=== PATIENT | female | born 1965 | race Caucasian/White ===

== ENCOUNTER 2020-05-21 14:32 | Outpatient (CLI) | payer BC, SELFPAY ==
--- NOTE | ~2020-05-21 | MM_ITS ---
EXAMINATION: MM screening [place] BI w elizabeth HISTORY: Screening mammogram TECHNIQUE: Craniocaudal and mediolateral oblique 3-D tomosynthesis images were obtained and synthetic 2-D images were generated. CAD analysis was submitted and interpreted. COMPARISON: 04/11/2019, 12/20/2016 bilateral digital screening mammogram examinations BREAST PARENCHYMAL COMPOSITION: The breasts are heterogeneously dense, which may obscure small masses . FINDINGS: There is no evidence of suspicious mass, calcification, or architectural distortion to sugg est malignancy in either breast. There has been no suspicious interval change. IMPRESSION: 1. No mammographic evidence of malignancy. 2. Recommend routine screening mammography in one year. BI-RADS Category 1: Negative Reviewed, dictated and finalized at location A.
== END 2020-05-21 14:33 | disposition home or self-care (01) ==
LOC: ANHIMG 14:34
PROVIDERS: PCP Emergency Medicine; Visit Provider Obstetrics & Gynecology
DX: Z12.31 Encounter for screening mammogram for malignant neoplasm of breast (principal)
CPT/HCPCS: 77063; 77067

== ENCOUNTER → 2021-12-30 14:46 | Outpatient (CLI) | payer BC, SELFPAY ==
--- NOTE | ~2021-12-30 | CT_ITS ---
EXAMINATION: CT sinus wo con DATE: 12/30/2021 15:09 INDICATION: Chronic sinusitis TECHNIQUE: Computed tomography (CT) of the paranasal sinuses was performed without contrast. Iterativ e reconstruction technique was employed. Exam dose: 283.55 mGy-cm total exam DLP. COMPARISON: None FINDINGS: There is prominent leftward deviation of the nasal septum. There is moderate prominence of the nasal turbinates intralamellar cell of the middle nasal turbinates. The ostiomeatal units are patent. There is minimal mucoperiosteal thickening along the lower aspect of the maxillary sinuses. The paran marcello sinuses otherwise are normally developed and aerated. The mastoid air cells are well aerated. IMPRESSION: Prominent leftward deviation of nasal septum Intralamellar cell of middle nasal turbinates Minimal mucoperiosteal thickening of the lower aspect of the maxillary sinuses Reviewed, dictated and finalized at Location A. Reviewed, dictated and finalized at location A.
== END ==
PROVIDERS: Visit Provider Emergency Medicine
DX: J32.9 Chronic sinusitis, unspecified (principal); J34.2 Deviated nasal septum
CPT/HCPCS: 70486

== ENCOUNTER → 2022-02-10 15:18 | Outpatient (CLI) | payer BC, SELFPAY ==
--- NOTE | ~2022-02-10 | XR_ITS ---
XR knee LT 3V DATE: 02/10/2022 15:29 INDICATION: Left knee pain TECHNIQUE: Bensley and standing AP and lateral views COMPARISON: None FINDINGS: There is evidence of suprapatellar knee joint effusion. No fracture or dislocation, periosteal reaction or bone destruction. No radiopaque intra-articular lo ose body or chondrocalcinosis. Joint spaces are preserved. IMPRESSION: Suprapatellar knee joint effusion Reviewed, dictated and finalized at location B.
== END ==
PROVIDERS: PCP Emergency Medicine; Visit Provider Emergency Medicine
DX: M25.462 Effusion, left knee (principal)
CPT/HCPCS: 73562

== ENCOUNTER → 2022-02-27 14:43 | Outpatient (CLI) | payer BC, SELFPAY ==
--- NOTE | ~2022-02-27 | MR_ITS ---
EXAMINATION: MR knee LT wo con DATE: 02/27/2022 15:15 INDICATION: Left knee bursitis presenting with 6 weeks of generalized left knee pain. TECHNIQUE: Magnetic resonance imaging (MRI) of the left knee was performed without intravenous contra st. Sequences included coronal PD-weighted FSE, coronal PD-weighted FS FSE, sagittal T2-weighted FSE , sagittal PD-weighted FS FSE and axial PD weighted fat saturated FSE. COMPARISON: None. FINDINGS: Medial compartment: Medial meniscus is normal. Partial-thickness chondral ulceration with smooth chondral surface and wit hout degenerative subchondral changes at the central aspect of the medial tibial plateau. Additional partial thickness cartilage loss with mild chondral surface irregularity at the lateral rim of the ce ntral weightbearing medial femoral condyle. Lateral compartment: Lateral meniscus is normal. Articular cartilage is normal. Patellofemoral compartment: Deep chondral fissuring along the caudal aspect of the lateral patellar facet. Trochlear cartilage is normal. Ligaments and tendons: Anterior and posterior cruciate ligaments are normal. The medial collateral ligament and fibular bandar ateral ligament complex are normal. The extensor mechanism is normal. The visualized medial and later al hamstring tendons as well as the iliotibial band are normal. Fluid: Small amount of joint fluid in the suprapatellar pouch which is within normal limits. No loose osteoc hondral bodies identified. Mild prepatellar edema without discrete bursal fluid collection. Osseous/other: Bone alignment is normal. No fracture or abnormal marrow replacing process. Small amount of edema at the deep suprapatellar fat pad. IMPRESSION: 1. Mild osteoarthritis with small regions of moderate grade chondromalacia at the medial and patellof emoral compartments. 2. Small region of edema at the deep suprapatellar fat pad which can be seen with fat pad impingement syndrome. Reviewed, dictated and finalized at location B. IMPRESSION: 1. Mild osteoarthritis with small regions of moderate grade chondromalacia at t he medial and patellofemoral compartments. 2. Small region of edema at the deep suprapatellar fat pad which can be seen wi th fat pad impingement syndrome.
== END ==
PROVIDERS: PCP Emergency Medicine; Visit Provider Emergency Medicine
DX: M17.12 Unilateral primary osteoarthritis, left knee (principal); M70.52 Other bursitis of knee, left knee; M79.89 Other specified soft tissue disorders; M94.262 Chondromalacia, left knee
CPT/HCPCS: 73721

== ENCOUNTER 2022-03-19 09:23 | Outpatient (CLI) | payer BC, SELFPAY ==
--- NOTE | ~2022-03-19 | MM_ITS ---
EXAMINATION: MM screening [place] BI w elizabeth HISTORY: Screening TECHNIQUE: Craniocaudal and mediolateral oblique 3-D tomosynthesis images were obtained and synthetic 2-D images were generated. CAD analysis was submitted and interpreted. COMPARISON: Comparison to multiple prior studies sequentially, with oldest reviewed study dated 06/21. BREAST PARENCHYMAL COMPOSITION: The breasts are heterogenously dense, which may obscure small masses FINDINGS: There is no evidence of suspicious mass, calcification, or architectural distortion to sugg est malignancy in either breast. There has been no suspicious interval change. IMPRESSION: 1. No mammographic evidence of malignancy. 2. Recommend routine screening mammography in one year. BI-RADS Category 1: Negative Reviewed, dictated and finalized at location A.
== END 2022-03-19 09:24 | disposition home or self-care (01) ==
LOC: ANHIMG 09:26
PROVIDERS: PCP Emergency Medicine; Visit Provider Emergency Medicine
DX: Z12.31 Encounter for screening mammogram for malignant neoplasm of breast (principal)
CPT/HCPCS: 77063; 77067

== ENCOUNTER 2022-05-12 00:19 | Day surgery (SDC) | payer BC, SELFPAY ==
[2022-04-22 14:12] VITALS: BMI 18.7
[2022-05-12 08:35] VITALS: BP 127/73; PULSE 64; RESP 16; TEMP 36.5; O2SAT 100
[2022-05-12] MEDS: LACTATED RINGERS 1,000 ML 150 ML IV CONT (08:38)
--- NOTE | 2022-05-12 08:52 | PM.IMHP ---
H&P: HPI History of Present Illness Date/Time: 05/12/22 08:52 Chief Complaint: Neoplasia screening. Narrative: This is a 57-year-old white female patient presents for screening colonoscopy. Patient is current weight appetite bowel movements are normal. She denies abdominal pain. She has had no bleeding. Family history is significant that her mother had colon cancer. Patient did have a benign colon polyp removed from the colon time last colonoscopy 2016. Patient presents today for neoplasia screening colonoscopy. Review of Systems Review of Systems: Review of systems noncontributory. [facility] Past Medical History Medical History Chondromalacia, patella Claustrophobia Hypothyroidism (acquired) Patella brian Patellofemoral syndrome Family History Family History Father Hypertension, Onset Age: 69 Acute myocardial infarction, Onset Age: 69 Mother Carcinoma of colon Family history of malignant neoplasm of breast in first degree relative Family history of malignant neoplasm of kidney Sibling Family history of malignant neoplasm of ovary, Onset Age: 45 Other Breast cancer Family history of cardiovascular disease Family history of malignant neoplasm Heart disease Social History Social History Smoking status: Never smoker Alcohol intake: never Substance use: never Living arrangements: with family Spiritual care concerns: No Meds Home Medications and Allergies Home Medications Medication Instructions Recorded Confirmed Type Calcium + D 1 tablet PO DAILY 05/28/21 05/12/22 History propranolol 160 mg capsule,24 160 mg PO DAILY #90 caps 09/03/21 05/12/22 Rx hr,extended release levothyroxine 75 mcg tablet 75 mcg PO DAILY #90 tabs 03/07/22 05/12/22 Rx Allergies Allergy/AdvReac Type Severity Reaction Status Date / Time No Known Allergies Allergy Unknown Verified 05/12/22 08:34 Vital Signs Vital Signs - 24 hr 05/12/22 08:35 Temperature 97.7 F Pulse Rate 64 Respiratory Rate 16 Blood Pressure 127/73 Pulse Oximetry 100 Oxygen Delivery Room Air Exam Narrative: Physical exam reveals patient to be alert. Vital signs stable. HEENT exam is unremarkable. Patient is anicteric. Lungs are clear to auscultation and percussion. Heart is without murmur or extra sounds. Abdominal exam bowel sounds are present soft nontender with no organomegaly. Digital external rectal exam is normal. Assessment and Plan Assessment and plan (1) Family history of colon cancer in mother: Code(s): Z80.0 - Family history of malignant neoplasm of digestive organs Status: Acute Assessment and Plan: Patient is mother had colon cancer. For this reason screening colonoscopy advised at 5 year intervals (2) History of colon polyps: Code(s): Z86.010 - Personal history of colonic polyps Status: Acute Assessment and Plan: Patient found to have benign colon polyp at time of colonoscopy 2017 plan for follow-up colonoscopy at 5 year intervals.
--- NOTE | 2022-05-12 09:06 | P.PNAN_ITS ---
Anes - Initial Pre Proc Eval Procedure: Operation Date: 05/12/22 09:30 Proposed Procedures p Screening Colonoscopy - Vinny Luciano MD Date/Time: 05/12/22 09:06 Surgeon: Vinny Luciano MD Pre Op Diagnosis: hx of colon polyps Patient Data Age: 57 Gender: F Height: 1.6 m Weight: 47.3 kg Last Vital Signs Temp 97.7 F 05/12/22 08:35 Pulse 64 05/12/22 08:35 Resp 16 05/12/22 08:35 BP 127/73 05/12/22 08:35 Pulse Ox 100 05/12/22 08:35 O2 Del Method Room Air 05/12/22 08:35 Allergies Allergy/AdvReac Type Severity Reaction Status Date / Time No Known Allergies Allergy Unknown Verified 05/12/22 08:34 Home Medications Medication Instructions Recorded Confirmed Type Calcium + D 1 tablet PO DAILY 05/28/21 05/12/22 History propranolol 160 mg capsule,24 160 mg PO DAILY #90 caps 09/03/21 05/12/22 Rx hr,extended release levothyroxine 75 mcg tablet 75 mcg PO DAILY #90 tabs 03/07/22 05/12/22 Rx Patient hx anesthesia problems: none Family hx anesthesia problems: none Results Review: All pre-operative results and documents have been reviewed as part of the pre- operative evaluation. [facility] Past Medical History Medical History Chondromalacia, patella Claustrophobia Hypothyroidism (acquired) Patella brian Patellofemoral syndrome Family History Family History Father Hypertension, Onset Age: 69 Acute myocardial infarction, Onset Age: 69 Mother Carcinoma of colon Family history of malignant neoplasm of breast in first degree relative Family history of malignant neoplasm of kidney Sibling Family history of malignant neoplasm of ovary, Onset Age: 45 Other Breast cancer Family history of cardiovascular disease Family history of malignant neoplasm Heart disease Social History Social History Smoking status: Never smoker Alcohol intake: never Substance use: never Living arrangements: with family Spiritual care concerns: No Anes - Eval Final PreProcedure Day of Procedure 05/12/22 09:06 Airway: Mallampati scale class II ASA classification: II Anesthesia type and monitoring: general GIVS and standard monitoring Results Review: All pre-operative results and documents have been reviewed as part of the pre- operative evaluation. Informed Consent: The patient's anesthetic plan and its attendant risks and benefits were discussed with the patient/family/POA. Questions were solicited and answers provided to the satisfaction of the patient/family/POA.
[2022-05-12 09:46] VITALS: BP 98/43; PULSE 79; RESP 21; O2SAT 98
[2022-05-12 09:56] VITALS: BP 91/46; PULSE 65; RESP 18; O2SAT 100
[2022-05-12 10:06] VITALS: BP 88/49; PULSE 64; RESP 17; O2SAT 100
[2022-05-12 10:16] VITALS: BP 100/54; PULSE 69; RESP 16; O2SAT 100
== END 2022-05-12 10:17 | disposition home or self-care (01) ==
PROVIDERS: PCP Emergency Medicine; Visit Provider Internal Medicine Gastroenterology
PROC: 0DJD8ZZ Inspection of Lower Intestinal Tract, Via Natural or Artificial Opening Endoscopic (ICD-10-PCS; CPT 45378; principal; 2022-05-12 09:30)
DX: Z12.11 Encounter for screening for malignant neoplasm of colon (principal); K64.8 Other hemorrhoids; K57.30 Diverticulosis of large intestine without perforation or abscess without bleeding; Z86.010 Personal history of colon polyps; Z80.0 Family history of malignant neoplasm of digestive organs; E03.9 Hypothyroidism, unspecified
CPT/HCPCS: 45378; J2704; J7120

== ENCOUNTER 2023-09-18 15:28 | Outpatient (CLI) | payer BC, SELFPAY ==
--- NOTE | ~2023-09-18 | XR_ITS ---
EXAMINATION: [id number] DATE: 09/18/2023 15:47 INDICATION: Right knee pain TECHNIQUE: AP and crosstable lateral views of the right knee were obtained. COMPARISON: None. FINDINGS: Alignment is normal. No fracture. Joint spaces appear normal on nonweightbearing imaging. No right kn ee joint effusion. There is soft tissue swelling anterior to the lower pole of the patella. IMPRESSION: 1. Anterior infrapatellar soft tissue swelling. No right knee joint effusion or osseous abnormality. Reviewed, dictated and finalized at location A. [employer]
== END 2023-09-18 15:29 | disposition home or self-care (01) ==
PROVIDERS: PCP Emergency Medicine; Visit Provider Emergency Medicine
DX: M25.461 Effusion, right knee (principal); M79.89 Other specified soft tissue disorders
CPT/HCPCS: 73560

== ENCOUNTER 2024-01-05 14:01 | Outpatient (CLI) | payer BC, SELFPAY ==
--- NOTE | ~2024-01-05 | DEXA_ITS ---
Bone Density Report Name: GRICELDA RAMIREZ Age: 58 Sex: Female Ethnicity: White Date of : 1965 Indication: postmenopausal; screening for osteoporosis; height loss; Referring Provider: RENÉE CEDENO Study: Bone densitometry was performed. Exam Date: January 05, 2024 Accession number: [id number] Bone Density: Region BMD T-score Z-score Classification AP Spine(L1-L4) 0.777 -2.5 -1.2 Osteoporosis Femoral Neck (Left) 0.554 -2.7 -1.5 Osteoporosis Total Hip (Left) 0.710 -1.9 -1.1 Osteopenia Femoral Neck (Right) 0.541 -2.8 -1.6 Osteoporosis Total Hip (Right) 0.766 -1.4 -0.6 Osteopenia Total Hip Mean 0.738 -1.7 -0.9 Osteopenia World Health Organization criteria for BMD impression classify patients as: Normal (T-score at or above -1.0), Osteopenia (T-score between -1.0 and -2.5), or Osteoporosis (T-score at or below -2.5). 10-year Fracture Risk: FRAX not reported because: Some T-score for Spine Total or Hip Total or Femoral Neck at or below -2.5 Treated for osteoporosis Clinical Information Provided by Patient: Is being treated for osteoporosis Has used the following medications: Vitamin D, Calcium Patient maximum height was 64 No regular weight bearing exercise Onset of menses at age 17 Number of children 2 Impression: The patient has osteoporosis, based on the Right Femoral Neck T-score. Discussion: It is important to ask patients whether they are taking their medications and to encourage continued and appropriate compliance with their osteoporosis therapies to reduce fracture risk. It is also important to review their risk factors and encourage appropriate calcium and vitamin D intakes, exercise, fall prevention and other lifestyle measures. Follow-Up: Consider a repeat BMD and Vertebral Fracture Assessment (VFA) exam in 2 years or sooner if medically necessary, to reassess this patient's status. Reported by: ELPIDIO on 01/08/2024 12:56:00 PM. Reviewed, dictated and finalized at location AOpal ANTONIO
== END 2024-01-05 14:02 | disposition home or self-care (01) ==
PROVIDERS: PCP Emergency Medicine; Visit Provider Obstetrics & Gynecology
DX: Z13.820 Encounter for screening for osteoporosis (principal); Z78.0 Asymptomatic menopausal state; M81.0 Age-related osteoporosis without current pathological fracture; M85.852 Other specified disorders of bone density and structure, left thigh; M85.851 Other specified disorders of bone density and structure, right thigh
CPT/HCPCS: 77080

== ENCOUNTER 2024-03-18 14:39 | Outpatient (CLI) | payer BC, SELFPAY ==
--- NOTE | ~2024-03-18 | MM_ITS ---
EXAMINATION: MM screening [place] BI w elizabeth HISTORY: Screening TECHNIQUE: Craniocaudal and mediolateral oblique 3-D tomosynthesis images were obtained and synthetic 2-D images were generated. CAD analysis was submitted and interpreted. COMPARISON: Comparison to multiple prior studies sequentially, with oldest reviewed study dated 06/21. BREAST PARENCHYMAL COMPOSITION: Dense: The breasts are heterogeneously dense, which may obscure small masses FINDINGS: There is no evidence of suspicious mass, calcification, or architectural distortion to sugg est malignancy in either breast. There has been no suspicious interval change. IMPRESSION: 1. No mammographic evidence of malignancy. 2. Recommend routine screening mammography in one year. BI-RADS Category 1: Negative Reviewed, dictated and finalized at location B.
== END 2024-03-18 14:40 | disposition home or self-care (01) ==
LOC: ANHIMG 14:41
PROVIDERS: PCP Emergency Medicine; Visit Provider Obstetrics & Gynecology
DX: Z12.31 Encounter for screening mammogram for malignant neoplasm of breast (principal)
CPT/HCPCS: 77063; 77067